=== PATIENT | male | born 1950 | race Caucasian/White ===

== ENCOUNTER → 2016-07-22 | Outpatient (CLI) | payer BC ==
--- NOTE | 2016-07-22 15:34 | US ---
EXAMINATION TYPE: US extremity nonvasculr ltd RT DATE OF EXAM: 07/22/2016 2:21 PM COMPARISON: NONE CLINICAL HISTORY: R22.41 Localized swelling mass/lump r. lower limb. Patient noticed lump right upper inner thigh x one month, states it has decreased in size. TECHNOLOGIST IMPRESSION: scanned area of concern, right upper inner thigh over palpable, there is a heterogeneous focus, mixed echogenicity which does not show significant flow on color Doppler, some c entral color flow noted on one image. 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
== END | disposition home or self-care (01) ==
LOC: RADUSWWP 13:58
PROVIDERS: ATTEND Pediatrics
DX: R22.41 Localized swelling, mass and lump, right lower limb (principal)

== ENCOUNTER → 2018-12-14 | Outpatient (CLI) | payer BC, MEDICARE ==
[2018-12-14 10:59] LABS: Basophils % (A) 1 %; Eosinophils # (A) 0.3 k/uL (0-0.7); Eosinophils % (A) 6 %; HCT 40.5 % (39.0-53.0); HGB 13.9 gm/dL (13.0-17.5); Lymphocytes # (A) 0.9 k/uL (1.0-4.8); Lymphocytes % (A) 20 %; MCH 30.2 pg (25.0-35.0); MCHC 34.4 g/dL (31.0-37.0); MCV 87.7 fL (80.0-100.0); Mean Platelet Volume 7.4; Monocytes # (A) 0.3 k/uL (0-1.0); Monocytes % (A) 7 %; Neutrophils # (A) 2.9 k/uL (1.3-7.7); Neutrophils % (A) 64 %; Platelet Count 208 k/uL (150-450); RBC 4.62 m/uL (4.30-5.90); RDW 13.2 % (11.5-15.5); WBC 4.5 k/uL (3.8-10.6)
[2018-12-14 11:25] LABS: Appearance,Urine Clear (Clear); Bilirubin,Urine Negative (Negative); Blood,Urine Negative (Negative); Color,Urine Yellow; Glucose,Urine (UA) Negative (Negative); Ketones,Urine Negative (Negative); Leukocyte Esterase,Urine Negative (Negative); Nitrite,Urine Negative (Negative); PH, Urine 5.5 (5.0-8.0); Protein,Urine Negative (Negative); Specific Gravity,Urine 1.023 (1.001-1.035); Urobilinogen,Urine <2.0 mg/dL (<2.0)
[2018-12-14 17:37] LABS: Albumin 4.3 g/dL (3.80-4.90); Albumin/Globulin Ratio 1.79 (1.60-3.17); Anion Gap 9.2 mmol/L (4.00-12.00); BUN/Creat Ratio 21.43 Ratio (12.00-20.00); Calcium 9.6 mg/dL (8.7-10.3); Carbon Dioxide 23.8 mmol/L (21.6-31.8); Globulin 2.4 g/dL (1.6-3.3); Potassium 4.2 mmol/L (3.5-5.5); Total Bilirubin 0.8 mg/dL (0.3-1.2); Total Protein 6.7 g/dL (6.2-8.2)
== END | disposition home or self-care (01) ==
LOC: LABWHC1 10:11
PROVIDERS: ATTEND Internal Medicine Critical Care Medicine
DX: D86.9 Sarcoidosis, unspecified (principal)
CPT/HCPCS: 36415; 80053; 81003; 82164; 85025

== ENCOUNTER → 2019-01-02 | Outpatient (CLI) | payer MEDICARE ==
[2019-01-02 10:45] LABS: African American GFR (CKD) >90 (>60 ml/min/1.73 sqM); Blood Urea Nitrogen 21 mg/dL (9-20)
--- NOTE | 2019-01-02 12:50 | CT ---
EXAMINATION TYPE: CT chest w con DATE OF EXAM: 01/02/2019 COMPARISON: NONE HISTORY: Follow up sarcoidosis CT DLP: 438.1 mGycm. Automated Exposure Control for Dose Reduction was Utilized. TECHNIQUE: CT scan of the thorax is performed following with IV Contrast, patient injected with 100 mL of Isovue 300. FINDINGS: LUNGS: Small area of linear scarring anteromedially right middle lobe axial image 36. Mild linear sca rring in the bases just above the diaphragm bilaterally. No pleural effusion or pneumothorax. Tracheo bronchial tree is patent. MEDIASTINUM: There are abnormal thoracic lymph nodes with bilateral hilar enlarged lymph nodes as wel l as abnormal mediastinal lymph nodes. For reference right paratracheal lymph node measures 2.0 x 1.4 cm axial image 17. No cardiomegaly or pericardial effusion is seen. Coronary artery calcification i s present which is noted marker for underlying coronary artery disease. OTHER: Moderate multilevel spurring in the spine is present. IMPRESSION: Thoracic adenopathy presumed on the basis of sarcoidosis. No significant parenchymal monte ges. No acute pulmonary process.
== END | disposition home or self-care (01) ==
LOC: RADCTMAIN 09:48
PROVIDERS: ATTEND Internal Medicine Critical Care Medicine
DX: D86.9 Sarcoidosis, unspecified (principal)
CPT/HCPCS: 82565; 84520; 71260; 36415; Q9967

== ENCOUNTER 2020-03-29 12:37 | Emergency (ER) | payer MEDICARE ==
[2020-03-29 12:44] VITALS: RESP 18
[2020-03-29] MEDS ORDERED: LIDOCAINE 1% INJ 10MG/ML (20 ML MDV) SQ ONE (13:04)
[2020-03-29] MEDS ORDERED: DIPH,PERTUS(ACELL)TETVAC-LF 0.5 ML VIAL IM ONE (13:34)
[2020-03-29] MEDS ORDERED: CIPROFLOXACIN HCL 500 MG TAB PO STA (13:35)
[2020-03-29] MEDS ORDERED: SULFAMETH-TMP DS STARTER PACK 2 TAB BTL PO STA (13:35)
--- NOTE | 2020-03-29 13:55 | XR ---
EXAMINATION TYPE: XR foot complete RT DATE OF EXAM: 03/29/2020 COMPARISON: 06/24/2015 HISTORY: Puncture wound stepped on nail TECHNIQUE: Three-view right foot FINDINGS: Plantar and Achilles tendon calcaneal heel spurs are present. Plantar aspect of the foot ap pears normal. No radiopaque foreign bodies are evident. Some degenerative changes at the first metatarsophalangeal joint space. Degenerative changes and subl uxation of the middle phalanx on the proximal phalanx of the fifth digit is present. Mild narrowing o f the proximal interphalangeal joint spaces appears to be present.. No acute fractures are evident. J oint spaces otherwise preserved IMPRESSION: 1. No acute osseous abnormality. 2. No radiopaque foreign body.
--- NOTE | 2020-03-29 13:59 | ED ---
Lower Extremity Injury HPI - General Chief Complaint: Extremity Injury, Lower Stated Complaint: stepped on nail Time Seen by Provider: 03/29/20 12:48 Source: patient, RN notes reviewed, old records reviewed Mode of arrival: ambulatory Limitations: no limitations - History of Present Illness Initial Comments: Patient 69-year-old male presents emergency department today with actually stepping on a nail on his right foot. 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 The jeff nail went through his shoe. He reports that this happened on Monday night. States he noticed some redness swelling today as well as some drainage from the puncture wound site. Patient states that he's had no fevers or chills. He is nondiabetic. - Related Data Previous Rx's Medication Instructions Recorded Ciprofloxacin HCl [Cipro] 500 mg PO Q12HR #20 tablet 06/24/15 Ciprofloxacin HCl [Cipro] 500 mg PO Q12HR 10 Days #20 tab 03/29/20 Allergies Allergy/AdvReac Type Severity Reaction Status Date / Time No Known Allergies Allergy Verified 03/29/20 12:44 Review of Systems ROS Statement: Those systems with pertinent positive or pertinent negative responses have been documented in the HPI. ROS Other: All systems not noted in ROS Statement are negative. Past Medical History Additional Past Medical History / Comment(s): Dysphagia; Sarcoidosis History of Any Multi-Drug Resistant Organisms: None Reported Past Surgical History: Hernia Repair Additional Past Surgical History / Comment(s): Throat and lung biopsy; Inguinal hernia Past Psychological History: No Psychological Hx Reported Smoking Status: Former smoker Past Alcohol Use History: Occasional Past Drug Use History: None Reported General Exam - General Exam Comments Initial Comments: 59-year-old male. Alert and oriented 3. No acute distress. Limitations: no limitations General appearance: alert, in no apparent distress Head exam: Present: atraumatic, normocephalic, normal inspection Eye exam: Present: normal appearance, PERRL, EOMI. Absent: scleral icterus, conjunctival injection, periorbital swelling ENT exam: Present: normal exam, mucous membranes moist Neck exam: Present: normal inspection. Absent: tenderness, meningismus, lymphadenopathy Respiratory exam: Present: normal lung sounds bilaterally. Absent: respiratory distress, wheezes, rales, rhonchi, stridor Cardiovascular Exam: Present: regular rate, normal rhythm, normal heart sounds. Absent: systolic murmur, diastolic murmur, rubs, gallop, clicks GI/Abdominal exam: Present: soft, normal bowel sounds. Absent: distended, tenderness, guarding, rebound, rigid Right Lower Leg exam: Present: normal inspection, full ROM Ankle exam: Present: normal inspection, full ROM Foot/Toe exam: Present: full ROM, tenderness, swelling (Patient has tenderness swelling and erythema with puncture wound site over the mid plantar aspect of his foot. There is a puncture wound has no evidence of purulent drainage. Wound culture obtained.). Absent: normal inspection Neurovascular tendon exam: Present: no vascular compromise Gait: observed and normal Back exam: Present: normal inspection Neurological exam: Present: alert, oriented X3, CN II-XII intact Psychiatric exam: Present: normal affect, normal mood Course Vital Signs 03/29/20 12:42 Temperature 97.8 F Pulse Rate 54 L Respiratory 18 Rate Blood Pressure 141/72 O2 Sat by Pulse 98 Oximetry Procedures - [place] Protocol (Time Out) Procedure Performed:: Incision and Drainage R foot puncture wound Performing Provider: Cecile Jennings Timeout Date: 03/29/20 Timeout Time: 13:45 Patient Identification (2 identifiers required): Chart, Verbal 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 Insurance has Confirmed: Identity, Site Site: R foot Site Marked: Yes Site Verified With Patient/Guardian: Yes Final Confirmation: Procedure, Site - Incision & Drainage Indication: puncture wound Site: foot (R plantar mid foot) Size (cm): 2 Anesthetic Used: lidocaine 1% Amount (mLs): 2 I&D Cleaning Method: Chloroprep Sterile Field Used?: Yes Scalpel Used: #11 I&D Drainage Obtained: Pus, Blood Culture Obtained?: Yes Patient Tolerated Procedure: well, no complications Medical Decision Making - Medical Decision Making 69-year-old male presents emergency department today with a puncture wound over the right foot. He is evidence of erythema surrounding the plantar and dorsal aspect of the foot. Patient's puncture wound was incised and irrigated. Pus was removed. Patient has wound was thoroughly irrigated with 2 L of sterile water and iodine. Patient was started on Cipro is a puncture wound to go through his foot and concern for pseudomonas. He is nondiabetic. Patient is given updated tetanus vaccine. Patient advised to keep a close eye on the foot and there is any worsening redness or swelling or pain to return to the ER for reevaluation. Patient is understanding of treatment plan will comply. Discussed Epsom salts soaks as well. - Radiology Data Radiology results: report reviewed No acute osseous abnormality. No radiopaque foreign body. Disposition Clinical Impression: Puncture wound of foot Disposition: HOME SELF-CARE Condition: Good Instructions (If sedation given, give patient instructions): Puncture Wound (ED) Additional Instructions: Take antibiotic as prescribed. Have close follow-up with primary care physician for recheck. If the area of redness worsens within the next 24-48 hours Patient may need to return for IV antibiotics. Take Motrin Tylenol for pain. Patient to do Epsom salt soaks. Prescriptions: Ciprofloxacin HCl [Cipro] 500 mg PO Q12HR 10 Days #20 tab Is patient prescribed a controlled substance at d/c from ED?: No Referrals: Dayne Colvin MD [Primary Care Provider] - 1-2 days Time of Disposition: 13:56
[2020-03-29 14:18] VITALS: BP 135/73; PULSE 70; TEMP 98.6
== END 2020-03-29 14:01 | disposition home or self-care (01) ==
LOC: EC 12:37
DX: S91.331A Puncture wound without foreign body, right foot, initial encounter (principal); Z23 Encounter for immunization; Z87.891 Personal history of nicotine dependence; W45.0XXA Nail entering through skin, initial encounter; Y92.79 Other farm location as the place of occurrence of the external cause
CPT/HCPCS: 87070; 87205; 73630; 90715; 99284; 90471; 10060; J2001

== ENCOUNTER → 2020-06-05 | Outpatient (CLI) | payer MEDICARE ==
--- NOTE | 2020-06-05 14:54 | XR ---
EXAMINATION TYPE: XR knee 4V LT DATE OF EXAM: 06/05/2020 COMPARISON: None HISTORY: Pain TECHNIQUE: 4 view left knee FINDINGS: There is loss of the medial compartment joint space. Posterior patellar spurring is present superiorly and inferiorly. A large superior patellar spur medial tibial plateau spurring is present. IMPRESSION: 1. Moderate degenerative changes left knee
== END | disposition home or self-care (01) ==
LOC: RADXRWHC 13:25
PROVIDERS: ATTEND Pediatrics
DX: M17.12 Unilateral primary osteoarthritis, left knee (principal)

== ENCOUNTER → 2021-01-25 | Outpatient (CLI) | payer MEDICARE ==
--- NOTE | 2021-01-25 12:33 | ECHOF ---
Referral Reason:I49.3 Ventricular premature depolarization MEASUREMENTS -------- HEIGHT: 177.8 cm WEIGHT: 89.8 kg BP: RVIDd: 4.2 cm (< 3.3) IVSd: 1.1 cm (0.6 - 1.1) LVIDd: 5.6 cm (3.9 - 5.3) LVPWd: 1.0 cm (0.6 - 1.1) IVSs: 1.4 cm LVIDs: 4.1 cm LVPWs: 1.1 cm LAESV Index (A-L): 45.70 ml/m Ao Diam: 3.0 cm (2.0 - 3.7) AV Cusp: 1.8 cm (1.5 - 2.6) LA Diam: 3.8 cm (2.7 - 3.8) MV EXCURSION: 24.505 mm (> 18.000) MV EF SLOPE: 97 mm/s (70 - 150) EPSS: 1.1 cm MV E Howard: 0.97 m/s MV DecT: 211 ms MV A Howard: 0.58 m/s MV E/A Ratio: 1.67 RAP: 20.00 mmHg RVSP: 52.30 mmHg FINDINGS -------- Sinus rhythm with extra systolic beats. This was a technically adequate study. The left ventricular size is normal. Left ventricular wall thickness is normal. Overall left vent ricular systolic function is mild-moderately impaired with, an EF between 40 - 45 %. The right ventricle is moderately enlarged. LA is severely dilated >40 ml/m2 The right atrium is mildly enlarged. Interatrial and interventricular septum intact. There is mild aortic valve sclerosis. There is mild aortic regurgitation. There is no evidence of aortic stenosis. Moderate mitral annular calcification present. Moderate mitral regurgitation is present. Moderate tricuspid regurgitation present. There is moderate to severe pulmonary hypertension. The right ventricular systolic pressure, as measured by Doppler, is 52.30mmHg. There is no pulmonic regurgitation present. The aortic root size is normal. The inferior vena cava is dilated with poor inspiratory collapse which is consistent with estimated r ight atrial pressure of 20 mmHg. There is no pericardial effusion. CONCLUSIONS -------- 1. Left ventricular wall thickness is normal. 2. Overall left ventricular systolic function is mild-moderately impaired with, an EF between 40 - 45 %. 3. The right ventricle is moderately enlarged. 4. LA is severely dilated >40 ml/m2 5. The right atrium is mildly enlarged. 6. There is mild aortic valve sclerosis. 7. There is mild aortic regurgitation. 8. Moderate mitral annular calcification present. 9. Moderate mitral regurgitation is present. 10. Moderate tricuspid regurgitation present. 11. There is moderate to severe pulmonary hypertension. 12. The inferior vena cava is dilated with poor inspiratory collapse which is consistent with estimat ed right atrial pressure of 20 mmHg. 13. There is no pericardial effusion. TECHNOLOGY DEVELOPMENT INTERN: Em Monzon RDCS
== END | disposition home or self-care (01) ==
LOC: RADECHMAIN 08:14
PROVIDERS: ATTEND Pediatrics
DX: I08.1 Rheumatic disorders of both mitral and tricuspid valves (principal); I27.20 Pulmonary hypertension, unspecified
CPT/HCPCS: 93306

== ENCOUNTER → 2022-03-24 | Outpatient (CLI) | payer MEDICARE ==
--- NOTE | 2022-03-24 15:47 | FL ---
EXAMINATION TYPE: FL barium swallow w video DATE OF EXAM: 03/24/2022 COMPARISON: NONE HISTORY: Aspiration, pneumonia, difficulty swallowing TECHNIQUE: Fluoroscopy. FINDINGS: Fluoroscopic guidance was provided for the procedure performed in conjunction with the [facility] pathology department. Please see complete report forthcoming from the Speech Pathology departmen t. Various consistencies from thin liquid to solids were administered. Fluoroscopy time 2 minutes for seconds. Number of images: 0. Aspiration was evident with thin liquids to solids and silent aspiration was occurring during the exa m Pooling within the vallecula was evident. There is pooling within the inferior hypopharynx is well ab ove the maximal esophageal sphincter. Swallowing and clearing of the hypopharynx required several swa llows including thin liquids There is persistence of the cricopharyngeus muscle throughout the exam. Small anterior vertebral body spurs are also noted. There is no dilatation is nasal tone which is a change in the last year. IMPRESSION: 1. Aspiration with silent aspiration multiple consistencies. 2. Persistent cricopharyngeus muscle. Pooling within vallecula and inferior hypopharynx. 3. Please also see speech pathology report.
== END | disposition home or self-care (01) ==
LOC: RADUSWWP 07:54
PROVIDERS: ATTEND Pediatrics
DX: R13.10 Dysphagia, unspecified (principal)
CPT/HCPCS: 74230

== ENCOUNTER → 2022-06-28 | Outpatient (CLI) | payer MEDICARE ==
[2022-06-28 23:01] LABS: Basophils # (A) 0.04 X 10*3/uL (0.00-0.10); Basophils % (A) 0.6 %; Eosinophils % (A) 4.6 %; HCT 38.9 % (39.6-50.0); HGB 13.2 g/dL (13.0-17.0); Immature Grans, Automated 0.3 %; Lymphocytes # (A) 0.85 X 10*3/uL (0.90-5.00); Lymphocytes % (A) 12.9 %; MCH 30.8 pg (27.0-32.0); MCHC 33.9 g/dL (32.0-37.0); MCV 90.9 fL (80.0-97.0); Mean Platelet Volume 10.6 fL (9.5-12.2); Monocytes # (A) 0.67 X 10*3/uL (0.20-1.00); Monocytes % (A) 10.2 %; NRBC Per 100 WBC 0 /100 WBCS (0.0-0.0); Neutrophils % (A) 71.4 %; Platelet Count 203 X 10*3/uL (140-440); RBC 4.28 X 10*6/uL (4.40-5.60); WBC 6.58 X 10*3/uL (4.50-10.00)
[2022-06-29 17:14] LABS: African American GFR (CKD) 100.6 (60.0-200.0); Albumin 4.2 g/dL (3.8-4.9); Albumin/Globulin Ratio 1.75 (1.60-3.17); Anion Gap 14.8 mmol/L (10.00-18.00); BUN/Creat Ratio 20.44 Ratio (12.00-20.00); Blood Urea Nitrogen 18.4 mg/dL (9.0-27.0); Carbon Dioxide 21.2 mmol/L (20.0-27.5); Globulin 2.4 g/dL (1.6-3.3); Non-African American GFR(CKD) 86.8 (60.0-200.0); Potassium 4.3 mmol/L (3.5-5.5); T4, Free (Free Thyroxine) 0.98 ng/dL (0.800-1.800); Total Bilirubin 0.5 mg/dL (0.30-1.20); Total Protein 6.6 g/dL (6.2-8.2)
== END | disposition home or self-care (01) ==
LOC: LABWHC1 15:10
PROVIDERS: ATTEND Nurse Practitioner Acute Care
DX: G43.909 Migraine, unspecified, not intractable, without status migrainosus (principal); E55.9 Vitamin D deficiency, unspecified; E53.9 Vitamin B deficiency, unspecified; H53.9 Unspecified visual disturbance; R42 Dizziness and giddiness
CPT/HCPCS: 36415; 80053; 82306; 82607; 84207; 84439; 84443; 84480; 85025

== ENCOUNTER 2024-10-25 12:39 | Emergency (ER) | payer MEDICARE ==
--- NOTE | 2024-10-25 13:09 | ED ---
General Adult HPI - General Chief complaint: Chest Pain Stated complaint: chest pain Time Seen by Provider: 10/25/24 12:46 Source: patient, RN notes reviewed Mode of arrival: ambulatory Limitations: no limitations - History of Present Illness Initial comments: Patient is a 74-year-old male present to the emergency department with concerns for left arm paresthesias. Onset was around 945 this morning. Symptoms have improved however not completely resolved. Patient denies ever having any sort of chest discomfort at all. This is despite what is listed in triage. Patient denies chest discomfort, indigestion, tightness, sharp, pressure or any disco mfort or any chest symptoms at all. Patient has chronic headaches. No change from chronic headaches. Patient denies ever having any weakness. Patient denies any loss of sensation. No confusion. No speech problems. - Related Data Home Medications Medication Instructions Recorded Confirmed Albuterol Sulfate [Albuterol 2 puff PO RT-Q4H PRN 10/25/24 10/25/24 Sulfate Hfa] Baclofen [Lioresal] 10 mg PO TID PRN 10/25/24 10/25/24 Fluticasone Propion/Salmeterol 1 puff INHALATION RT-BID 10/25/24 10/25/24 [Advair 250-50 Diskus] Omeprazole [PriLOSEC] 40 mg PO AC-BRKFST 10/25/24 10/25/24 atenoloL [Tenormin] 50 mg PO DAILY 10/25/24 10/25/24 busPIRone HCl [Buspar] 5 mg PO TID PRN 10/25/24 10/25/24 Allergies Allergy/AdvReac Type Severity Reaction Status Date / Time No Known Allergies Allergy Verified 10/25/24 14:09 Review of Systems ROS Statement: Those systems with pertinent positive or pertinent negative responses have been documented in the HPI. ROS Other: All systems not noted in ROS Statement are negative. Constitutional: Denies: fever Eyes: Denies: eye pain ENT: Denies: ear pain Respiratory: Denies: cough Cardiovascular: Reports: as per HPI. Denies: chest pain Gastrointestinal: Denies: abdominal pain Neurological: Reports: as per HPI, paresthesias. Denies: weakness, confusion Past Medical History Additional Past Medical History / Comment(s): Dysphagia; Sarcoidosis History of Any Multi-Drug Resistant Organisms: None Reported Past Surgical History: Hernia Repair Additional Past Surgical History / Comment(s): Throat and lung biopsy; Inguinal hernia Past Psychological History: No Psychological Hx Reported Smoking Status: Former smoker Past Alcohol Use History: Rare Past Drug Use History: None Reported General Exam Limitations: no limitations General appearance: alert, in no apparent distress Head exam: Present: normocephalic Eye exam: Present: normal appearance, PERRL, EOMI ENT exam: Present: normal oropharynx Neck exam: Present: normal inspection. Absent: tenderness Respiratory exam: Present: normal lung sounds bilaterally Cardiovascular Exam: Present: regular rate, normal rhythm, normal heart sounds Expanded Peripheral pulses: 2+: Radial (L) GI/Abdominal exam: Present: soft. Absent: tenderness Extremities exam: Present: normal inspection, full ROM. Absent: tenderness Neurological exam: Present: alert, oriented X3, CN II-XII intact. Absent: motor sensory deficit Expanded Neurological exam: Present: protecting the airway Patient oriented to: Present: person, place, time Speech: Present: fluid speech Cranial nerves: EOM's Intact: Normal, Facial Sensation: Normal Sensory exam: Upper Extremity Light Touch: Normal, Lower Extremity Light Touch: Normal Motor strength exam: RUE: 5, LUE: 5, RLE: 5, LLE: 5 Eye Response: (4) open spontaneously Motor Response: (6) obeys commands Verbal Response: (5) oriented Psychiatric exam: Present: normal affect, normal mood Skin exam: Present: normal color Course Vital Signs 10/25/24 12:40 Temperature 98.2 F Pulse Rate 74 Respiratory 20 Rate Blood Pressure 171/60 O2 Sat by Pulse 96 Oximetry EKG Findings - EKG Results: EKG: interpreted by ERMD (Occasional PVCs present. Nonspecific ST-T.), sinus rhythm, normal axis, normal QRS Medical Decision Making - Medical Decision Making Was pt. sent in by a medical professional or institution (, PA, COMMISSIONS COORDINATOR, urgent care, hospital, or [place] health care facility...) When possible be specific @ -Patient states he was sent by his primary care physician because they did not have an EKG machine that worked Did you speak to anyone other than the patient for history (EMS, parent, family, police, friend...)? What history was obtained from this source @ -No Did you review nursing and triage notes (agree or disagree)? Why? @ -I reviewed and agree with nursing and triage notes Were old charts reviewed (outside hosp., previous admission, EMS record, old EKG, old radiological studies, urgent care reports/EKG's, [place] health care facility records)? Report findings @ -No old charts were reviewed Differential Diagnosis (chest pain, altered mental status, abdominal pain women, abdominal pain men, vaginal bleeding, weakness, fever, dyspnea, syncope, headache, dizziness, GI bleed, back pain, seizure, CVA, palpatations, mental health, musculoskeletal)? @ -Differential Musculoskeletal Muscular strain, contusion, ligament sprain, fracture, arthritis, septic arthri tis, bursitis, cellulitis, muscle spasm, nerve compression, DVT, arterial occlusion, herpes zoster, electrolyte abnormality, tumor.... This is not meant to be in all inclusive list EKG interpreted by me (3pts min.). @ -As above X-rays interpreted by me (1pt min.). @ -Chest x-ray shows no acute process CT interpreted by me (1pt min.). @ -CT scan of the brain without acute intercranial abnormality U/S interpreted by me (1pt. min.). @ -None done What testing was considered but not performed or refused? (CT, X-rays, U/S, labs)? Why? @ -None What meds were considered but not given or refused? Why? @ -None Did you discuss the management of the patient with other professionals (professionals i.e. , PA, COMMISSIONS COORDINATOR, lab, RT, psych nurse, social work program coordinator, research dietitian, teacher, radio division officer, case management assistant)? Give summary @ -No Was smoking cessation discussed for >3mins.? @ -No Was critical care preformed (if so, how long)? @ -No Were there social determinants of health that impacted care today? How? (Homelessness, low income, unemployed, alcoholism, drug addiction, transportation, low edu. Level, literacy, decrease access to med. care, shelter, rehab)? @ -No Was there de-escalation of care discussed even if they declined (Discuss DNR or withdrawal of care, Hospice)? DNR status @ -No What co-morbidities impacted this encounter? (DM, HTN, Smoking, COPD, CAD, Cancer, CVA, ARF, Chemo, Hep., AIDS, mental health diagnosis, sleep apnea, morbid obesity)? @ -None Was patient admitted / discharged? Hospital course, mention meds given and route, prescriptions, significant lab abnormalities, going to OR and other pertinent info. @ -Patient presents with left arm paresthesia. No chest pain. No dyspnea. No weakness. No confusion. No loss of sensation. Evaluation unremarkable, exam unremarkable. On reevaluation patient is symptom-free. Patient still denies ever having any chest discomfort or weakness. Patient would like to be discharged home. Patient updated on results and need for follow-up. Undiagnosed new problem with uncertain prognosis? @ -No Drug Therapy requiring intensive monitoring for toxicity (Heparin, Nitro, Insulin, Cardizem)? @ -No Were any procedures done? @ -No Diagnosis/symptom? @ -Left arm paresthesia Acute, or Chronic, or Acute on Chronic? @ -Acute Uncomplicated (without systemic symptoms) or Complicated (systemic symptoms)? @ -Default Side effects of treatment? @ -No Exacerbation, Progression, or Severe Exacerbation? @ -No Poses a threat to life or bodily function? How? (Chest pain, [place], [place], pneumonia, PE, COPD, DKA, ARF, appy, cholecystitis, CVA, Diverticulitis, Homicidal, Suicidal, threat to staff... and all critical care pts) @ -No - Lab Data Result diagrams: 10/25/24 13:17 10/25/24 13:17 Lab Results 10/25/24 10/25/24 10/25/24 Range/Units 13:17 13:17 13:17 WBC 13.21 H (4.50-10.00) 10*3/uL RBC 4.77 (4.40-5.60) 10*6/uL Hgb 14.8 (13.0-17.0) g/dL Hct 42.0 (39.6-50.0) % MCV 88.1 (80.0-97.0) fL MCH 31.0 (27.0-32.0) pg MCHC 35.2 (32.0-37.0) g/dL Plt Count 184 (140-440) 10*3/uL MPV 10.7 (9.5-12.2) fL Immature Gran % (Auto) 0.4 % Neutrophils % 86.7 % Lymphocytes % 6.2 % Monocytes % 5.5 % Eosinophils % 0.8 % Basophils % 0.4 % Immature Gran # 0.05 H (0.00-0.04) 10*3/uL Neutrophils # 11.47 H (1.80-7.70) 10*3/uL Lymphocytes # 0.82 L (0.90-5.00) 10*3/uL Monocytes # 0.72 (0.20-1.00) 10*3/uL Eosinophils # 0.10 (0.04-0.35) 10*3/uL Basophils # 0.05 (0.00-0.10) 10*3/uL PT 11.0 (10.0-12.5) sec INR 1.0 (<1.2) APTT 23.6 (22.0-30.0) sec Sodium 137 (137-145) mmol/L Potassium 4.0 (3.5-5.1) mmol/L Chloride 104 (98-107) mmol/L Carbon Dioxide 24 (22-30) mmol/L Anion Gap 9 mmol/L BUN 16 (9-20) mg/dL Creatinine 0.63 L (0.66-1.25) mg/dL Est GFR (CKD-EPI)AfAm >90 (>60 ml/min/1.73 sqM) Est GFR (CKD-EPI)NonAf >90 (>60 ml/min/1.73 sqM) Glucose 228 H (74-99) mg/dL Plasma Lactic Acid Yao (0.7-2.0) mmol/L Calcium 9.3 (8.4-10.2) mg/dL Magnesium 1.9 (1.6-2.3) mg/dL Total Bilirubin 0.7 (0.2-1.3) mg/dL AST 16 L (17-59) U/L ALT 14 (4-49) U/L Alkaline Phosphatase 63 (38-126) U/L Troponin I (0.000-0.034) ng/mL Total Protein 6.5 (6.3-8.2) g/dL Albumin 3.9 (3.5-5.0) g/dL 10/25/24 10/25/24 Range/Units 13:17 13:17 WBC (4.50-10.00) 10*3/uL RBC (4.40-5.60) 10*6/uL Hgb (13.0-17.0) g/dL Hct (39.6-50.0) % MCV (80.0-97.0) fL MCH (27.0-32.0) pg MCHC (32.0-37.0) g/dL Plt Count (140-440) 10*3/uL MPV (9.5-12.2) fL Immature Gran % (Auto) % Neutrophils % % Lymphocytes % % Monocytes % % Eosinophils % % Basophils % % Immature Gran # (0.00-0.04) 10*3/uL Neutrophils # (1.80-7.70) 10*3/uL Lymphocytes # (0.90-5.00) 10*3/uL Monocytes # (0.20-1.00) 10*3/uL Eosinophils # (0.04-0.35) 10*3/uL Basophils # (0.00-0.10) 10*3/uL PT (10.0-12.5) sec INR (<1.2) APTT (22.0-30.0) sec Sodium (137-145) mmol/L Potassium (3.5-5.1) mmol/L Chloride (98-107) mmol/L Carbon Dioxide (22-30) mmol/L Anion Gap mmol/L BUN (9-20) mg/dL Creatinine (0.66-1.25) mg/dL Est GFR (CKD-EPI)AfAm (>60 ml/min/1.73 sqM) Est GFR (CKD-EPI)NonAf (>60 ml/min/1.73 sqM) Glucose (74-99) mg/dL Plasma Lactic Acid Yao 2.2 H* (0.7-2.0) mmol/L Calcium (8.4-10.2) mg/dL Magnesium (1.6-2.3) mg/dL Total Bilirubin (0.2-1.3) mg/dL AST (17-59) U/L ALT (4-49) U/L Alkaline Phosphatase (38-126) U/L Troponin I <0.012 (0.000-0.034) ng/mL Total Protein (6.3-8.2) g/dL Albumin (3.5-5.0) g/dL Disposition Clinical Impression: Paresthesia of left arm Disposition: HOME SELF-CARE Condition: Stable Instructions (If sedation given, give patient instructions): Paresthesia (ED) Additional Instructions: Please do follow-up with your primary care physician beginning of the week. Return for chest pain, difficulty breathing, weakness, confusion, visual changes, speech problems, loss of sensation, worsening or change in symptoms or any other concerns. Is patient prescribed a controlled substance at d/c from ED?: No Referrals: None,Stated [Primary Care Provider] - 1-2 days Forms: Area PCPs Time of Disposition: 14:39
[2024-10-25 13:22] LABS: Basophils # (A) 0.05 10*3/uL (0.00-0.10); Basophils % (A) 0.4 %; Eosinophils % (A) 0.8 %; HGB 14.8 g/dL (13.0-17.0); Lymphocytes # (A) 0.82 10*3/uL (0.90-5.00); Lymphocytes % (A) 6.2 %; MCHC 35.2 g/dL (32.0-37.0); MCV 88.1 fL (80.0-97.0); Mean Platelet Volume 10.7 fL (9.5-12.2); Monocytes # (A) 0.72 10*3/uL (0.20-1.00); Monocytes % (A) 5.5 %; Neutrophils # (A) 11.47 10*3/uL (1.80-7.70); Neutrophils % (A) 86.7 %; Platelet Count 184 10*3/uL (140-440); RBC 4.77 10*6/uL (4.40-5.60); WBC 13.21 10*3/uL (4.50-10.00)
--- NOTE | 2024-10-25 13:28 | XR ---
EXAMINATION TYPE: XR chest 2V DATE OF EXAM: 10/25/2024 1:25 PM COMPARISON: None. CLINICAL INDICATION: Male, 74 years old with history of Weakness: Shortness of breath TECHNIQUE: XR chest 2V views of the chest are obtained. FINDINGS: Scattered senescent parenchymal changes noted. Hyperinflation compatible with COPD. No evidence for infiltrate. No evidence for atelectasis. Heart size is stable. Mediastinal structures are stable and grossly unremarkable. No evidence for hilar prominence. Degenerative changes dorsal spine. IMPRESSION: 1. No evidence for acute pulmonary disease. [facility], , 10/25/2024 1:26 PM
[2024-10-25 13:38] LABS: ALT 14 U/L (4-49); AST 16 U/L (17-59); African American GFR (CKD) >90 (>60 ml/min/1.73 sqM); Albumin 3.9 g/dL (3.5-5.0); Alkaline Phosphatase 63 U/L (38-126); Anion Gap 9 mmol/L; Blood Urea Nitrogen 16 mg/dL (9-20); Calcium 9.3 mg/dL (8.4-10.2); Carbon Dioxide 24 mmol/L (22-30); Chloride 104 mmol/L (98-107); Glucose 228 mg/dL (74-99); Magnesium 1.9 mg/dL (1.6-2.3); Non-African American GFR(CKD) >90 (>60 ml/min/1.73 sqM); Sodium 137 mmol/L (137-145); Total Bilirubin 0.7 mg/dL (0.2-1.3); Total Protein 6.5 g/dL (6.3-8.2)
[2024-10-25 13:51] LABS: Partial Thromboplastin Time 23.6 sec (22.0-30.0)
[2024-10-25] MEDS: SODIUM CHLORIDE 0.9% 500 ML 500 ML IV STA (14:09)
--- NOTE | 2024-10-25 14:30 | CT ---
EXAMINATION TYPE: CT brain wo con CT DLP: 1186.4 mGycm, Automated exposure control for dose reduction was used. DATE OF EXAM: 10/25/2024 2:23 PM COMPARISON: None. CLINICAL INDICATION:Male, 74 years old with history of weakness, chest pain and left arm numbness sin ce this am and dizziness TECHNIQUE: Brain: Multiple axial CT images of the brain were obtained without IV contrast. . Coronal and sagitta l reformats reviewed. FINDINGS: Brain: Extra-axial spaces: No abnormal extra-axial fluid collections. Ventricular system: Within normal limits Cerebral parenchyma: Cerebral atrophy. No acute intraparenchymal hemorrhage or mass effect. The cantor -white junction is well differentiated. Scattered hypoattenuating areas are seen within the periventr icular white matter. Partially empty sella. Cerebellum: Unremarkable. Mass effect: No evidence of midline shift. Intracranial vasculature: Atherosclerotic calcifications of the intracranial vessels. Soft tissues: Normal. Calvarium/osseous structures: No depressed skull fracture. Paranasal sinuses and mastoid air cells: Clear Visualized orbits: Bilateral aphakia IMPRESSION: 1. No acute intracranial process. 2. Nonspecific white matter changes, likely secondary to chronic small vessel ischemic disease. [facility], , 10/25/2024 2:28 PM
[2024-10-25 14:52] VITALS: BP 165/71; PULSE 69; RESP 18; TEMP 98.1
== END 2024-10-25 14:52 | disposition home or self-care (01) ==
LOC: EC 12:39
DX: R20.2 Paresthesia of skin (principal); Z87.891 Personal history of nicotine dependence
CPT/HCPCS: 36415; 70450; 71046; 80053; 83605; 83735; 84484; 85025; 85610; 85730; 93005; 96360; 99285